=== PATIENT | male | born 1975 | race Caucasian/White ===

== ENCOUNTER 2020-10-16 19:39 | Emergency (ER) | payer OTHER, SELFPAY ==
[2020-10-16 19:43] VITALS: BP 155/102; PULSE 78; RESP 18; TEMP 36.3; O2SAT 99
--- NOTE | 2020-10-16 20:08 | ED.LOWEXIN ---
HPI - Extremity Injury (Lower) General Chief Complaint: Extremity Injury, Lower Stated Complaint: leg pain Time Seen by Provider: 10/16/20 19:48 History of Present Illness HPI Narrative: Patient is a 45-year-old male who presents ER with right lower extremity swelling over the last day. Reports he started having cramping in his right thigh and it is now moved down to his right calf. He notices swelling compared to the left side thought he come in. No chest pain or shortness of breath. No history of DVT. No recent trauma or prolonged immobilization including hospitalization/travel. Related Data Allergies Allergy/AdvReac Type Severity Reaction Status Date / Time No Known Allergies Allergy Verified 10/16/20 19:47 Review of Systems Cardiovascular: Cardiovascular: Denies chest pain and Denies radiating jaw, neck or arm pain Respiratory: Respiratory: Denies cough, Denies dyspnea and Denies wheezing Musculoskeletal: Comments: Right thigh and calf cramping with swelling. PMFSH Past Medical History Medical History (Updated 10/16/20 @ 20:17 by Pete Chapa MD) Chronic GERD Hypogonadism in male Major depressive disorder Surgical History Surgical History (Updated 10/16/20 @ 20:17 by Pete Chapa MD) H/O knee surgery Family History Family History (Updated 01/11/14 @ 07:13 by DOCTOR UNKNOWN) Sibling Family history of mental disorder Depression Family history of migraine headaches Mother Depression Father Family history of lung cancer Social History Social History (Updated 08/27/20 @ 10:49 by Shae Moreno MA) Second hand tobacco smoke exposure: No Alcohol intake: former Gender identity (if verbalized by the patient): Male Exam Narrative: Exam Narrative: GENERAL: Well-appearing, well-nourished, and in no acute distress. HEAD: Normocephalic, atraumatic. EXTREMITIES: Normal range of motion. 1+ edema right lower extremity compared to left with discernible enlargement compared to the left. SKIN: Warm, dry, no rash. NEURO: Alert and oriented x3. PSYCH: Normal mood and affect. Course Course Emergency Course: Contacted patient's PCP. Patient will be given Lovenox and receive an ultrasound at [address] Yin will then review the results and determine if patient needs prolonged anticoagulation. Vital Signs Vital signs: Vital Signs Temperature 97.4 F L 10/16/20 19:43 Pulse Rate 78 10/16/20 19:43 Respiratory Rate 18 10/16/20 19:43 Blood Pressure 155/102 H 10/16/20 19:43 Pulse Oximetry 99 10/16/20 19:43 Temperature 97.4 F L 10/16/20 19:43 Pulse Rate 78 10/16/20 19:43 Respiratory Rate 18 10/16/20 19:43 Blood Pressure 155/102 H 10/16/20 19:43 Pulse Oximetry 99 10/16/20 19:43 Discharge Plan Discharge Clinical Impression: Swelling of right lower extremity Patient Disposition: Home, Self-Care Condition: Stable Instructions: Deep Vein Thrombosis (ED) Additional Instructions: You have been scheduled for an ultrasound at 7 AM in the imaging center at [facility]. Please arrive 10 minutes early to be screened and fill out paperwork. You have been given a shot of Lovenox to thin your blood in case you do in fact have a DVT. Your primary care physician will review the results of the ultrasound and contact you if you need to be on a blood thinner. Return the ER if you develop chest pain or shortness of breath, you lose consciousness, or or you have additional concerns. Prescriptions: No Action triamcinolone acetonide 0.1 % ointment 1 applic topical BID PRN (Reason: flaking of skin on hands) Qty: 30 RF: 1 amlodipine 5 mg tablet 5 mg PO DAILY Qty: 30 RF: 3 bupropion HCl 150 mg tablet extended release 24 hr 150 mg PO QAM Qty: 90 RF: 1 bupropion HCl 300 mg tablet extended release 24 hr 300 mg PO QAM Qty: 90 RF: 1 (DME) syringe with needle 3 mL 23 x 1 syringe See Rx Instructions .ROUTE .MED
[2020-10-16] MEDS: ENOXAPARIN 100 MG/ML SYRINGE 160 MG SUB-Q (20:32)
[2020-10-16 20:46] VITALS: BP 149/93; PULSE 86; RESP 16; TEMP 36.7; O2SAT 98
== END 2020-10-16 20:47 | disposition home or self-care (01) ==
PROVIDERS: Emergency Provider Emergency Medicine; PCP Internal Medicine
DX: M79.89 Other specified soft tissue disorders (principal); K21.9 Gastro-esophageal reflux disease without esophagitis
CPT/HCPCS: 96372; 99283; J1650

== ENCOUNTER 2020-10-17 07:29 | Outpatient (CLI) | payer OTHER, SELFPAY ==
--- NOTE | ~2020-10-17 | US_ITS ---
EXAMINATION: US venous doppler LE RT DATE: 10/17/2020 07:52 INDICATION: Right lower limb swelling TECHNIQUE: Grayscale ultrasound images without and with compression and Doppler ultrasound images of the right lower extremity veins were obtained. COMPARISON: None. FINDINGS: The visualized portions of right common femoral vein, profunda (deep) femoral vein, femoral vein, pop liteal vein, peroneal trunk, posterior tibial veins, peroneal veins, gastrocnemius vein and greater s aphenous vein outflow are patent. IMPRESSION: 1. No deep venous thrombosis in the right lower limb. Reviewed, dictated and finalized at location A.
== END 2020-10-17 07:30 | disposition home or self-care (01) ==
LOC: ANHIMG 07:35
PROVIDERS: PCP Internal Medicine; Visit Provider Internal Medicine
DX: M79.89 Other specified soft tissue disorders (principal)
CPT/HCPCS: 93971

== ENCOUNTER → 2020-11-06 09:13 | Outpatient (CLI) | payer OTHER, SELFPAY ==
--- NOTE | ~2020-11-06 | XR_ITS ---
EXAMINATION: XR lumbar spine 2-3V DATE: 11/06/2020 09:40 INDICATION: Right leg pain and numbness. TECHNIQUE: 3 views of lumbar spine were obtained. COMPARISON: None. FINDINGS: There is 6 degrees levocurvature of lumbar spine. There is mild anterior wedging of L3 vert ebral body, likely chronic. Intervertebral disc heights are normal. There are endplate osteophytes at most levels. There is multilevel mild facet joint osteoarthritis. IMPRESSION: 1. Mild lumbar spondylosis. 2. Mild anterior wedging of L3 vertebral body, likely chronic. Reviewed, dictated and finalized at location A.
== END ==
PROVIDERS: PCP Internal Medicine; Visit Provider Internal Medicine
DX: R20.0 Anesthesia of skin (principal); M47.816 Spondylosis without myelopathy or radiculopathy, lumbar region
CPT/HCPCS: 72100

== ENCOUNTER → 2020-11-11 12:34 | Outpatient (CLI) | payer OTHER, SELFPAY ==
--- NOTE | ~2020-11-11 | US_ITS ---
EXAMINATION: US soft tissue LE RT DATE: 11/11/2020 13:04 INDICATION: Localized swelling, mass or lump at the medial mid right calf. TECHNIQUE: Multiple grayscale and Doppler ultrasound images of the region of concern at the medial mi d right calf were obtained. COMPARISON: None FINDINGS: Normal appearance to the subcutaneous fat and underlying musculature at the region of concern. Vascul ar flow seen within a few small normal-appearing vessels within the subcutaneous fat. No abnormal mas ses or fluid collections identified. IMPRESSION: 1. Unremarkable study. No abnormal masses, fluid collections or other etiology identified for reporte d palpable abnormality at the medial mid right calf. Reviewed, dictated and finalized at location A. IMPRESSION: 1. Unremarkable study. No abnormal masses, fluid collections or other etiology identified for reported palpable abnormality at the medial mid right calf.
== END ==
PROVIDERS: PCP Internal Medicine; Visit Provider Internal Medicine
DX: R22.40 Localized swelling, mass and lump, unspecified lower limb (principal); M79.89 Other specified soft tissue disorders
CPT/HCPCS: 76882

== ENCOUNTER 2021-03-18 10:39 | Outpatient (CLI) | payer OTHER, SELFPAY ==
--- NOTE | ~2021-03-18 | US_ITS ---
EXAMINATION: US abdomen limited DATE: 03/18/2021 11:17 INDICATION: Right upper quadrant pain TECHNIQUE: Multiple grayscale and Doppler ultrasound images of the abdomen were obtained. COMPARISON: None available FINDINGS: Bowel gas obscures visualization of the pancreas. The visualized portions of the pancreas a re unremarkable. The liver is normal with normal echogenicity and echotexture. No surface nodularity. Normal hepatopetal flow in the main portal vein. The gallbladder is normal with no abnormal wall thi ckening, pericholecystic fluid or stones. The normal common bile duct measures 4 mm. There was no son ographic Raygoza sign. IMPRESSION: 1. Normal sonographic study of the gallbladder. Reviewed, dictated and finalized at location B.
== END 2021-03-18 10:40 | disposition home or self-care (01) ==
LOC: ANHIMG 10:41
PROVIDERS: PCP Internal Medicine; Visit Provider Internal Medicine
DX: R10.11 Right upper quadrant pain (principal)
CPT/HCPCS: 76705

== ENCOUNTER 2023-09-18 09:36 | Emergency (ER) | payer SELFPAY ==
[2023-09-18 09:48] VITALS: BP 125/77; PULSE 72; RESP 16; TEMP 35.8; O2SAT 99
--- NOTE | 2023-09-18 10:27 | ED.BACK ---
HPI - Back Pain/Injury General Chief Complaint: Back Pain/Injury Stated Complaint: lower back pain Time Seen by Provider: 09/18/23 10:15 Source: patient, family (), RN notes reviewed and old records reviewed Mode of arrival: ambulatory Limitations: no limitations History of Present Illness HPI Narrative: Patient presents today with some right-sided low back pain that started 1 week ago. Denies any known injury or trauma. He went to the chiropractor and had an adjustment, but later that night was feeling very sharp and tight pains. The next 3 days following he had some improvement until last night when he had some sharp tightness again. He currently rates his pain 5/10 and has been taking Tylenol and some leftover Flexeril at home without relief as well as using heat and Biofreeze. Pain increases with standing. Denies numbness or tingling in the legs or genitalia. Denies loss of bowel or bladder control. He had does have history of lumbar arthritis and has been seen by Ortho and PCP in the past for same Related Data Allergies Allergy/AdvReac Type Severity Reaction Status Date / Time No Known Allergies Allergy Verified 09/18/23 09:41 Review of Systems Review of Systems: CONSTITUTIONAL: Denies body aches, fever, chills, or sweats. EYES: Denies visual changes, redness, or discharge. ENT: Denies rhinorrhea, congestion, sore throat, or otalgia. CARDIOVASCULAR: Denies chest pain, palpitations, or edema. RESPIRATORY: Denies cough or dyspnea. GASTROINTESTINAL: Denies abdominal pain, nausea, vomiting, or diarrhea. GENITOURINARY: Denies dysuria or hematuria. SKIN: Denies rash, itching, or wounds. MUSCULOSKELETAL: Low back pain NEUROLOGIC: Denies headache, numbness, tingling, or weakness. PSYCH: Denies depression or anxiety. [facility] Past Medical History Medical History Anxiety Arthritis of lumbar spine Chronic GERD Elevated blood pressure reading in office without diagnosis of hypertension Hypogonadism in male Major depressive disorder Surgical History Surgical History H/O knee surgery Family History Family History Sibling Family history of mental disorder Depression Family history of migraine headaches Heart disease Mother Depression Father Family history of lung cancer Social History Social History Smoking status: Never smoker Second hand tobacco smoke exposure: No Alcohol intake: former Alcohol use details: social - Once every couple months Substance use: never Substance use type: does not use Lack of Transportation: No Lack of Food: Never True Current Housing: I Have Housing Concerned About Future Housing: No Difficulty Paying Gas/Electric Bills: No Difficulty Paying for Meds: No Currently Unemployed: No Education: Trade/Vocational Certificate Difficulty w/ Childcare or Family Care: No Living arrangements: with family 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 Please see nursing chart for further information. There is no relevant family history pertinent to the presenting complaint Exam Narrative: GENERAL: Well-appearing, well-nourished, and in no acute distress. HEAD: Normocephalic, atraumatic. EYES: EOMI. No redness or drainage. Conjunctivae normal. ENT: Mucous membranes pink and moist. NECK: Normal AROM. CHEST: No respiratory distress. MUSCULOSKELETAL: No bony tenderness. Patient has tenderness of the right lower lumbar paraspinal muscles. No tenderness of the spine or l
== END 2023-09-18 10:37 | disposition home or self-care (01) ==
PROVIDERS: Emergency Provider Nurse Practitioner; PCP Nurse Practitioner Family
DX: S39.012A Strain of muscle, fascia and tendon of lower back, initial encounter (principal); X58.XXXA Exposure to other specified factors, initial encounter; K21.9 Gastro-esophageal reflux disease without esophagitis; M47.816 Spondylosis without myelopathy or radiculopathy, lumbar region
CPT/HCPCS: 99213; G0463